=== PATIENT | male | born 1970 | race Caucasian/White ===

== ENCOUNTER 2024-01-07 23:22 | Emergency (ER) | payer OTHER ==
[2024-01-07 23:32] VITALS: BP 147/102; PULSE 91; RESP 18; TEMP 99; BMI 26.6
[2024-01-07] MEDS ORDERED: TETRACAINE 0.5% OPHTH SOLN 2 ML BOTTLE ONE (23:50)
[2024-01-07] MEDS ORDERED: FLUORESCEIN NA 1 EA STRIP ONE (23:51)
[2024-01-08] MEDS ORDERED: CIPROFLOXACIN HCL 0.3% OPHTH 2.5ML BOTTLE ONE (00:16)
== END 2024-01-08 00:25 | disposition home or self-care (01) ==
LOC: FER 23:22
DX: H57.11 Ocular pain, right eye (principal); S00.11XA Contusion of right eyelid and periocular area, initial encounter; H11.89 Other specified disorders of conjunctiva; W22.8XXA Striking against or struck by other objects, initial encounter
CPT/HCPCS: 99282-25